=== PATIENT | female | born 1985 | race Caucasian/White ===

== ENCOUNTER 2021-12-19 20:52 | Emergency (ER) | payer OTHER ==
[2021-12-20] MEDS ORDERED: NORCO 5-325 TA1 EACH PO (01:04)
== END 2021-12-20 01:30 | disposition home or self-care (01) ==
LOC: FER 20:52
DX: M79.672 Pain in left foot (principal); I10 Essential (primary) hypertension; W01.0XXA Fall on same level from slipping, tripping and stumbling without subsequent striking against object, initial encounter; Y92.016 Swimming-pool in single-family (private) house or garden as the place of occurrence of the external cause
CPT/HCPCS: 73610; 73630; J1170